=== PATIENT | male | born 1995 | race Caucasian/White ===

== ENCOUNTER 2017-08-09 07:56 | Emergency (ER) | payer OTHER ==
[2017-08-09] MEDS: KETOROLAC TROMETHAMINE 10 MG TAB PO (08:20)
[2017-08-09] MEDS: CIPROFLOXACIN HC OTIC SUSPENSION AS (08:23)
== END 2017-08-09 08:29 | disposition home or self-care (01) ==
LOC: M ED 07:56
DX: H66.92 Otitis media, unspecified, left ear (principal); F17.210 Nicotine dependence, cigarettes, uncomplicated
CPT/HCPCS: 99282